=== PATIENT | female | born 1995 | race Caucasian/White ===

== ENCOUNTER 2017-07-10 06:36 | Day surgery (SDC) | payer OTHER ==
[~2017-07-10] VITALS: Ht 170.2 cm; Wt 102.8 kg
[~2017-07-10 06:36] MED LIST: AMIT100T PO; AMIT75TA PO; AZEL6DRO2 NAS; BACL-19 PO; CYCL5TAB PO; DEXA4TAB PO; DIAZ2TAB3 PO; DICL1ADH15 TD; DOXY100T9; GABA300C PO; GABA600T2 PO; HYDR-3307 PO; HYDROCODONE; METH750T87 PO; MORP30TA3 PO; MORPHINE IR SL; MULT-224 PO; NITR100C56; NITR100C56 PO; ONDA4TAB7; ONDA4TAB7 PO; PROM25TA10 PO; RANI150T4 PO; RANI300T3; RASPBERRY KETONES PO; RIZA10TA20 PO; SENN8.6T12 PO; TOPI100T24 PO; TOPI25TA32 PO; TOPI50TA35 PO; TRAM50TA2; TRAZ100T15; phenergan PO
[2017-07-10 07:20] VITALS: BP 123/83
[2017-07-10 09:05] LABS: GLUCOSE, CSF 59 mg/dL (40-80)
== END 2017-07-10 12:05 ==
LOC: OUT 06:36
PROVIDERS: ATTEND Neurological Surgery
DX: Q07.00 Arnold-Chiari syndrome without spina bifida or hydrocephalus (principal)
CPT/HCPCS: 62270; 82945; 84157; 87070; 87205

== ENCOUNTER → 2017-08-20 | Outpatient (CLI) | payer OTHER ==
[~2017-08-20] MED LIST changes: +ACET500C15 PO; +MORP15TA PO; +MORP30TA PO; +NORE0.357 PO; +OXYC10TA6 PO
[2017-08-20 09:23] LABS: HEMATOCRIT 48.1 % (34.6-47.8); HEMOGLOBIN 16.2 g/dL (11.7-16.4); WHITE BLOOD COUNT 8.4 x10^3/uL (3.4-10)
[2017-08-20 09:36] LABS: BLOOD UREA NITROGEN 11 mg/dL (7-18)
[2017-08-20 09:37] LABS: ASPARTATE AMINO TRANSFERASE 37 U/L (15-37)
== END | disposition home or self-care (01) ==
LOC: STAR 08:28
PROVIDERS: ATTEND Neurological Surgery
DX: Z01.818 Encounter for other preprocedural examination (principal); M43.24 Fusion of spine, thoracic region; M43.26 Fusion of spine, lumbar region; G93.2 Benign intracranial hypertension; R79.1 Abnormal coagulation profile
CPT/HCPCS: 36415; 71020; 80053; 85025; 85610; 85730; 93005

== ENCOUNTER 2017-08-26 05:46 | Inpatient (IN) | payer OTHER ==
[~2017-08-26] VITALS: Ht 170.2 cm; Wt 97.8 kg
[2017-08-26] MEDS ORDERED: LACTATED RINGERS 1,000 ML IV SCH (06:06)
[2017-08-26] MEDS ORDERED: BUPIVACAINE/PF 0.5% ONE ×2 (06:15→09:38)
[2017-08-26] MEDS ORDERED: THROMBIN 5,000 UNIT VIAL TP ONE ×2 (06:15→09:38)
[2017-08-26] MEDS ORDERED: BACITRACIN 50,000 UNIT ONE (06:16)
[2017-08-26] MEDS ORDERED: EPINEPHRINE 1 MG/ML, 1ML ONE (06:16)
[2017-08-26] MEDS ORDERED: FLU VACC QS2017-18 (36MOS+) UP/PF 0.5 ML IM-VACC ONE (06:30)
[2017-08-26 06:32] LABS: HCG UR LOT HCG7030192
[2017-08-26 06:38] LABS: HCG UR OBC PASS
[2017-08-26] MEDS ORDERED: PIPERACILLIN/TAZO/PMX 3.375GM 50 ML ONE (07:24)
[2017-08-26] MEDS ORDERED: CEFAZOLIN 1,000 MG ONE (07:37)
[2017-08-26] MEDS ORDERED: ROCURONIUM 10MG/ML,5ML ONE (07:37)
[2017-08-26] MEDS ORDERED: MIDAZOLAM 1 MG/ML, 2ML ONE (07:37)
[2017-08-26] MEDS ORDERED: ONDANSETRON 2MG/ML, 2ML ONE ×2 (07:37→09:43)
[2017-08-26] MEDS ORDERED: KETOROLAC 30 MG/1 ML ONE (07:37)
[2017-08-26] MEDS ORDERED: PROPOFOL 10 MG/ML, 20ML ONE (07:37)
[2017-08-26] MEDS ORDERED: NEOSTIGMINE 1 MG/ML, 10ML ONE (07:37)
[2017-08-26] MEDS ORDERED: DEXAMETHASONE 4 MG/ML, 5ML ONE (07:37)
[2017-08-26] MEDS ORDERED: GLYCOPYRROLATE 0.2MG/1ML, 5ML ONE (07:37)
[2017-08-26] MEDS ORDERED: FENTANYL PF 250 MCG/5ML ONE (07:37)
[2017-08-26] MEDS ORDERED: ACETAMINOPHEN 325 MG TABLET PO PRN (09:30)
[2017-08-26] MEDS ORDERED: PROMETHAZINE 25 MG/ML, 1ML IM PRN (09:30)
[2017-08-26] MEDS ORDERED: PHARMACY MAY ADJ FOR RENAL FX MC PRN (09:30)
[2017-08-26] MEDS ORDERED: OXYcodone 5 MG/5 ML ORAL.SOL UDC PO PRN (09:30)
[2017-08-26] MEDS ORDERED: DIPHENHYDRAMINE 50 MG CAPSULE PO PRN (09:30)
[2017-08-26] MEDS ORDERED: MAGNESIUM HYDROXIDE 8%, 30ML UDC PO PRN (09:30)
[2017-08-26] MEDS ORDERED: MEPERIDINE/PF 25MG/0.5ML IVPush PRN (09:30)
[2017-08-26] MEDS ORDERED: METOPROLOL 1 MG/ML, 5ML IV PRN (09:30)
[2017-08-26] MEDS ORDERED: ONDANSETRON 2MG/ML, 2ML IVPush PRN ×2 (09:30)
[2017-08-26] MEDS ORDERED: HYDROmorphone 1 MG/ML, 1ML IV PRN (09:30)
[2017-08-26] MEDS ORDERED: SENNA/DOCUSATE TABLET PO PRN (09:30)
[2017-08-26] MEDS ORDERED: ACETAMINOPHEN 650 MG/20.3 ML UDC ONE (09:41)
[2017-08-26] MEDS ORDERED: ACETAMINOPHEN 325 MG TABLET ONE (09:42)
[2017-08-26] MEDS ORDERED: OXYcodone 5 MG/5 ML ORAL.SOL UDC ONE (09:42)
[2017-08-26] MEDS ORDERED: FENTANYL PF 100 MCG/2ML ONE (09:42)
[2017-08-26] MEDS: FENTANYL PF 100 MCG/2ML IV PRN ×2 (10:00→10:15)
[2017-08-26 13:24] VITALS: BP 112/73
[2017-08-26] MEDS: NS + 20MEQ KCL 1,000 ML IV SCH (13:58)
[2017-08-26] MEDS: CEFAZOLIN PMX 1GM/50ML 50 ML IVPB SCH ×2 (15:26→23:03)
[2017-08-26] MEDS: GABAPENTIN 400 MG CAPSULE PO SCH ×2 (16:48→22:06)
[2017-08-26] MEDS: OXYcodone IR 5MG TABLET PO PRN ×2 (16:49→22:07)
[2017-08-26 20:02] VITALS: BP 116/73
[2017-08-26] MEDS ORDERED: AMITRIPTYLINE 100 MG TABLET PO SCH (21:00)
[2017-08-26] MEDS: SODIUM CHLORIDE FLUSH 10ML SYR IVF SCH (21:00)
[2017-08-26 23:56] VITALS: BP 113/59
[2017-08-27] MEDS: NS + 20MEQ KCL 1,000 ML IV SCH (03:00)
[2017-08-27 04:12] VITALS: BP 114/69
[2017-08-27 07:45] VITALS: BP 119/77
[2017-08-27] MEDS: GABAPENTIN 400 MG CAPSULE PO SCH (08:24)
[2017-08-27] MEDS: SODIUM CHLORIDE FLUSH 10ML SYR IVF SCH (08:24)
[2017-08-27] MEDS ORDERED: NORETHINDRONE 0.35 MG PO SCH (09:00)
== END 2017-08-27 10:52 | disposition home or self-care (01) | DRG 33 ==
LOC: ORIP 05:46 → 4NOR 11:10 → DCLOUNGE 08-27 10:30
PROVIDERS: ADMIT Neurological Surgery; ATTEND Neurological Surgery
PROC: 00164J6 Bypass Cerebral Ventricle to Peritoneal Cavity with Synthetic Substitute, Percutaneous Endoscopic Approach (ICD-10-PCS; principal; 2017-08-26 07:30)
DX: G93.2 Benign intracranial hypertension (principal); Z98.2 Presence of cerebrospinal fluid drainage device
CPT/HCPCS: 36415; 70450; 81025; 86850; 86900; J0171; J0690; J1100; J1885; J2250; J2405; J2543; J2704; J2710; J3010; J3480; J3490; C1727; C1894; J7120

== ENCOUNTER → 2017-09-18 | Outpatient (CLI) | payer OTHER | END | disposition home or self-care (01) | LOC: RAD 15:07 | PROVIDERS: ATTEND Nurse Practitioner Critical Care Medicine | DX: G93.2 Benign intracranial hypertension (principal); Z98.890 Other specified postprocedural states | CPT/HCPCS: 70450 ==

== ENCOUNTER → 2017-11-20 | Outpatient (CLI) | payer OTHER ==
[2017-11-20 12:10] LABS: ALBUMIN 3.8 g/dL (3.4-5.0); ANION GAP 8 mmol/L (5-15); C-REACTIVE PROTEIN, QUANT 0.22 mg/dL (0.02-0.49); CALCIUM 9.1 mg/dL (8.5-10.1); CHLORIDE 107 mmol/L (98-107)
[2017-11-20 12:13] LABS: ALANINE AMINOTRANSFERASE 35 U/L (12-78); ALKALINE PHOSPHATASE 100 U/L (45-117); BILIRUBIN,TOTAL 0.3 mg/dL (0.2-1.0); CREATININE 0.82 mg/dL (0.55-1.02); TOTAL PROTEIN 8.3 g/dL (6.4-8.2)
[2017-11-20 12:19] LABS: HEMOGLOBIN A1C 5.2 % (4.2-6.3)
== END | disposition home or self-care (01) ==
LOC: LAB 11:44
PROVIDERS: ATTEND Family Medicine
DX: R74.0 Nonspecific elevation of levels of transaminase and lactic acid dehydrogenase [LDH] (principal); G43.919 Migraine, unspecified, intractable, without status migrainosus; R26.89 Other abnormalities of gait and mobility
CPT/HCPCS: 36415; 80053; 82306; 83036; 86140

== ENCOUNTER → 2018-04-22 | Outpatient (CLI) | payer OTHER ==
[~2018-04-22] MED LIST changes: +CEFAZOLIN 1,000 MG ONE; +EPHEDRINE 50 MG/ML, 1ML ONE; +ONDANSETRON 2MG/ML, 2ML ONE; +OXYTOCIN 10 UNITS/ML, 1ML ONE; +PHENYLEPHRINE 10 MG/ML ONE; +WATER-INJECTION,STERILE 10 ML IV ONE; +morphine SULFATE/PF 0.5 MG/ML, 10ML ONE
== END | disposition home or self-care (01) ==
LOC: PETCFH 08:22
PROVIDERS: ATTEND Family Medicine
DX: R68.81 Early satiety (principal); R11.0 Nausea
CPT/HCPCS: 78264; A9541; J0690; J2274; J2405; J2370; J2590

== ENCOUNTER → 2018-04-24 | Outpatient (CLI) | payer OTHER ==
[~2018-04-24] MED LIST changes: -CEFAZOLIN 1,000 MG ONE; -EPHEDRINE 50 MG/ML, 1ML ONE; -ONDANSETRON 2MG/ML, 2ML ONE; -OXYTOCIN 10 UNITS/ML, 1ML ONE; -PHENYLEPHRINE 10 MG/ML ONE; -WATER-INJECTION,STERILE 10 ML IV ONE; -morphine SULFATE/PF 0.5 MG/ML, 10ML ONE
[2018-04-24 12:44] LABS: BASOPHILS # (AUTO) 0.02 x10^3/uL (0-0.1); BASOPHILS % (AUTO) 0 % (0-1); EOSINOPHILS # (AUTO) 0.15 x10^3/uL (0-0.4); EOSINOPHILS % (AUTO) 3 % (1-7); LYMPHOCYTES # (AUTO) 2.13 x10^3/uL (1-3.4); LYMPHOCYTES % (AUTO) 36 % (22-44); MD NO; MEAN CORPUSCULAR HEMOGLOBIN 30.1 pg (27.0-34.8); MEAN CORPUSCULAR HGB CONC 33.2 g/dL (32.4-35.8); MEAN CORPUSCULAR VOLUME 90.6 fL (80-100); MEAN PLATELET VOLUME 10.7 fL (7.4-10.4); MONOCYTES # (AUTO) 0.11 x10^3/uL (0.2-0.8); MONOCYTES % (AUTO) 2 % (2-9); NEUTROPHILS # (AUTO) 3.44 x10^3/uL (1.8-6.8); NEUTROPHILS % (AUTO) 59 % (42-75); PLATELET COUNT 226 x10^3/uL (130-400); RED BLOOD COUNT 4.94 x10^6/uL (3.82-5.3); RED CELL DISTRIBUTION WIDTH 13.9 % (9.6-15.2)
[2018-04-24 14:39] LABS: CHLORIDE 106 mmol/L (98-107)
[2018-04-24 14:50] LABS: ALANINE AMINOTRANSFERASE 28 U/L (12-78); ALBUMIN 4.1 g/dL (3.4-5.0); ALKALINE PHOSPHATASE 86 U/L (45-117); ANION GAP 4 mmol/L (5-15); BILIRUBIN,TOTAL 0.6 mg/dL (0.2-1.0); CALCIUM 9.5 mg/dL (8.5-10.1); CREATININE 0.98 mg/dL (0.55-1.02); TOTAL PROTEIN 8.2 g/dL (6.4-8.2)
== END | disposition home or self-care (01) ==
LOC: CFH 10:19
PROVIDERS: ATTEND Family Medicine
DX: I95.9 Hypotension, unspecified (principal); R42 Dizziness and giddiness
CPT/HCPCS: 36415; 80053; 82306; 82533; 85025

== ENCOUNTER 2018-04-30 20:15 | Emergency (ER) | payer OTHER ==
[~2018-04-30] VITALS: Ht 170.2 cm; Wt 73.4 kg
[2018-04-30] MEDS ORDERED: SODIUM CHLORIDE 0.9% 1,000ML IVBOLUS ONE (20:30)
[2018-04-30] MEDS ORDERED: SODIUM CHLORIDE FLUSH 10ML SYR IVF ONE (20:30)
[2018-04-30 20:51] LABS: BASOPHILS # (AUTO) 0.08 x10^3/uL (0-0.1); BASOPHILS % (AUTO) 1 % (0-1); EOSINOPHILS # (AUTO) 0.21 x10^3/uL (0-0.4); EOSINOPHILS % (AUTO) 3 % (1-7); LYMPHOCYTES # (AUTO) 3.19 x10^3/uL (1-3.4); LYMPHOCYTES % (AUTO) 42 % (22-44); MD NO; MEAN CORPUSCULAR HEMOGLOBIN 30.4 pg (27.0-34.8); MEAN CORPUSCULAR HGB CONC 33.7 g/dL (32.4-35.8); MEAN CORPUSCULAR VOLUME 90.1 fL (80-100); MEAN PLATELET VOLUME 10.1 fL (7.4-10.4); MONOCYTES # (AUTO) 0.33 x10^3/uL (0.2-0.8); MONOCYTES % (AUTO) 4 % (2-9); NEUTROPHILS # (AUTO) 3.78 x10^3/uL (1.8-6.8); NEUTROPHILS % (AUTO) 50 % (42-75); PLATELET COUNT 235 x10^3/uL (130-400); RED BLOOD COUNT 4.95 x10^6/uL (3.82-5.3); RED CELL DISTRIBUTION WIDTH 13.9 % (9.6-15.2)
[2018-04-30 20:56] LABS: ALANINE AMINOTRANSFERASE 25 U/L (12-78); ALBUMIN 4.2 g/dL (3.4-5.0); ANION GAP 5 mmol/L (5-15); CALCIUM 9.2 mg/dL (8.5-10.1); CHLORIDE 102 mmol/L (98-107); CREATININE 0.86 mg/dL (0.55-1.02)
[2018-04-30 21:01] LABS: ALKALINE PHOSPHATASE 85 U/L (45-117); BILIRUBIN,TOTAL 0.4 mg/dL (0.2-1.0); TOTAL PROTEIN 8.3 g/dL (6.4-8.2)
[2018-04-30 22:29] LABS: CULTURE INDICATED? YES; MICROSCOPIC INDICATED
[2018-04-30 23:17] VITALS: BP 101/66
== END 2018-04-30 23:45 | disposition home or self-care (01) ==
LOC: ED 23:22
DX: R51 Headache (principal); F50.89 Other specified eating disorder; K21.9 Gastro-esophageal reflux disease without esophagitis
CPT/HCPCS: 36415; 70250; 70450; 71045; 72040; 74018; 80053; 81001; 84703; 85025; 87086; 93005; 99285; J7030

== ENCOUNTER → 2018-05-12 | Outpatient (CLI) | payer OTHER ==
[2018-05-12 16:17] LABS: BASOPHILS # (AUTO) 0.01 x10^3/uL (0-0.1); BASOPHILS % (AUTO) 0 % (0-1); EOSINOPHILS # (AUTO) 0.16 x10^3/uL (0-0.4); EOSINOPHILS % (AUTO) 3 % (1-7); LYMPHOCYTES # (AUTO) 2.07 x10^3/uL (1-3.4); LYMPHOCYTES % (AUTO) 32 % (22-44); MD NO; MEAN CORPUSCULAR HEMOGLOBIN 30.6 pg (27.0-34.8); MEAN CORPUSCULAR HGB CONC 33.6 g/dL (32.4-35.8); MEAN PLATELET VOLUME 10.4 fL (7.4-10.4); MONOCYTES # (AUTO) 0.19 x10^3/uL (0.2-0.8); MONOCYTES % (AUTO) 3 % (2-9); NEUTROPHILS # (AUTO) 4.01 x10^3/uL (1.8-6.8); NEUTROPHILS % (AUTO) 62 % (42-75); PLATELET COUNT 195 x10^3/uL (130-400); RED BLOOD COUNT 4.87 x10^6/uL (3.82-5.3); RED CELL DISTRIBUTION WIDTH 13.9 % (9.6-15.2)
[2018-05-12 16:27] LABS: ALBUMIN 3.9 g/dL (3.4-5.0); ANION GAP 7 mmol/L (5-15); CALCIUM 9.9 mg/dL (8.5-10.1); CHLORIDE 108 mmol/L (98-107)
[2018-05-12 16:56] LABS: ALANINE AMINOTRANSFERASE 54 U/L (12-78); ALKALINE PHOSPHATASE 81 U/L (45-117); BILIRUBIN,TOTAL 0.3 mg/dL (0.2-1.0); CREATININE 0.77 mg/dL (0.55-1.02); THYROID STIMULATING HORMONE 0.866 mIU/L (0.358-3.740); TOTAL PROTEIN 7.8 g/dL (6.4-8.2)
== END | disposition home or self-care (01) ==
LOC: LAB 15:59
PROVIDERS: ATTEND Family Medicine
DX: R63.4 Abnormal weight loss (principal); R68.81 Early satiety
CPT/HCPCS: 36415; 80053; 82607; 84443; 85025

== ENCOUNTER → 2018-05-27 | Outpatient (CLI) | payer OTHER | END | disposition home or self-care (01) | LOC: CFH 07:47 | PROVIDERS: ATTEND Internal Medicine Gastroenterology | DX: R11.2 Nausea with vomiting, unspecified (principal); R63.4 Abnormal weight loss; K21.9 Gastro-esophageal reflux disease without esophagitis | CPT/HCPCS: 74245 ==

== ENCOUNTER → 2018-07-22 | Outpatient (CLI) | payer OTHER ==
[~2018-07-22] MED LIST changes: +OMNIPAQUE 350 MG/ML, 100ML BOTTLE ONE; +TRAZ-137; -TRAZ100T15
== END | disposition home or self-care (01) ==
LOC: CFH 09:51
PROVIDERS: ATTEND Family Medicine
DX: K76.0 Fatty (change of) liver, not elsewhere classified (principal); N20.0 Calculus of kidney
CPT/HCPCS: 74177; Q9967

== ENCOUNTER → 2018-08-04 | Outpatient (CLI) | payer OTHER ==
[~2018-08-04] MED LIST changes: +FLUD0.1T PO; +GADOBUTROL 7.5 MMOL/7.5 ML PFS ONE; +OMEP-110 PO; -OMNIPAQUE 350 MG/ML, 100ML BOTTLE ONE
== END | disposition home or self-care (01) ==
LOC: RAD 14:40
PROVIDERS: ATTEND Nurse Practitioner Psychiatric/Mental Health
DX: G44.89 Other headache syndrome (principal); G44.1 Vascular headache, not elsewhere classified; G97.1 Other reaction to spinal and lumbar puncture; R61 Generalized hyperhidrosis; Z98.890 Other specified postprocedural states
CPT/HCPCS: 70553; A9585

== ENCOUNTER → 2018-08-06 | Outpatient (CLI) | payer OTHER ==
[~2018-08-06] MED LIST changes: -GADOBUTROL 7.5 MMOL/7.5 ML PFS ONE
== END | disposition home or self-care (01) ==
LOC: STAR 10:37
PROVIDERS: ATTEND Internal Medicine Gastroenterology
DX: Z02.9 Encounter for administrative examinations, unspecified (principal)

== ENCOUNTER 2018-08-11 06:22 | Day surgery (SDC) | payer OTHER ==
[~2018-08-11] VITALS: Ht 170.2 cm; Wt 63.0 kg
[2018-08-11 07:00] VITALS: BP 111/78
[2018-08-11] MEDS ORDERED: SODIUM CHLORIDE 0.9% 1,000 ML IV SCH (07:02)
== END 2018-08-11 13:03 | disposition home or self-care (01) ==
LOC: OUT 06:22
PROVIDERS: ATTEND Nurse Practitioner Psychiatric/Mental Health
DX: R51 Headache (principal); Z88.6 Allergy status to analgesic agent
CPT/HCPCS: 62284; 72126; 72129; 72132; J7030; Q9967

== ENCOUNTER 2018-08-13 11:16 | Day surgery (SDC) | payer OTHER ==
[2018-08-06 11:14] VITALS: BP 102/69
[~2018-08-13] VITALS: Ht 170.2 cm; Wt 61.1 kg
[2018-08-13 12:06] VITALS: BP 102/69
[2018-08-13] MEDS ORDERED: LACTATED RINGERS 1,000 ML IV SCH (13:00)
[2018-08-13] MEDS ORDERED: PROPOFOL 10 MG/ML, 50ML ONE (13:02)
[2018-08-13] MEDS ORDERED: FENTANYL PF 100 MCG/2ML IV PRN (13:30)
[2018-08-13] MEDS ORDERED: MIDAZOLAM 1 MG/ML, 2ML IV PRN (13:30)
[2018-08-13] MEDS ORDERED: ONDANSETRON ODT 8 MG PO PRN (13:30)
== END 2018-08-13 15:00 | disposition home or self-care (01) ==
LOC: OR 11:16
PROVIDERS: ATTEND Internal Medicine Gastroenterology
DX: K31.89 Other diseases of stomach and duodenum (principal)
CPT/HCPCS: 43239; 81025; 88305; J2704; J7120; Q0162

== ENCOUNTER → 2018-08-13 | Outpatient (CLI) | payer OTHER ==
[2018-08-13 11:50] LABS: ALANINE AMINOTRANSFERASE 33 U/L (12-78); ANION GAP 6 mmol/L (5-15); CALCIUM 9.5 mg/dL (8.5-10.1); CHLORIDE 107 mmol/L (98-107); CREATININE 0.76 mg/dL (0.55-1.02)
[2018-08-13 11:54] LABS: ALKALINE PHOSPHATASE 77 U/L (45-117); BILIRUBIN,TOTAL 0.5 mg/dL (0.2-1.0); PREALBUMIN 18.2 mg/dL (20.0-40.0); TOTAL PROTEIN 8.2 g/dL (6.4-8.2)
== END | disposition home or self-care (01) ==
LOC: LAB 11:22
PROVIDERS: ATTEND Family Medicine
DX: R63.4 Abnormal weight loss (principal); R68.81 Early satiety
CPT/HCPCS: 36415; 80053; 84134

== ENCOUNTER → 2018-09-08 | Outpatient (CLI) | payer OTHER ==
[2018-09-08 10:23] LABS: HCG UR SG 1.017 (1.003-1.030)
== END | disposition home or self-care (01) ==
LOC: LAB 09:46
PROVIDERS: ATTEND Internal Medicine Gastroenterology
DX: R11.2 Nausea with vomiting, unspecified (principal)
CPT/HCPCS: 36415; 81025; 82150; 82533; 83690; 83970; 84110; 86704; 86708; 86803; 87340

== ENCOUNTER → 2018-12-03 | Outpatient (CLI) | payer OTHER ==
[~2018-12-03] MED LIST changes: -GABA600T2 PO; +GABA600T7 PO; -MULT-224 PO; +MULT-642 PO
== END | disposition home or self-care (01) ==
LOC: CFH 09:22
PROVIDERS: ATTEND Student in an Organized Health Care Education/Training Program
DX: N20.9 Urinary calculus, unspecified (principal); R10.9 Unspecified abdominal pain
CPT/HCPCS: 76770

== ENCOUNTER → 2019-01-13 | Outpatient (CLI) | payer MEDICAID, OTHER ==
[2019-01-13 17:01] LABS: ALBUMIN 4.2 g/dL (3.4-5.0); ANION GAP 4 mmol/L (5-15); CALCIUM 9.2 mg/dL (8.5-10.1); CHLORIDE 107 mmol/L (98-107)
[2019-01-13 17:07] LABS: ALANINE AMINOTRANSFERASE 20 U/L (12-78); ALKALINE PHOSPHATASE 68 U/L (45-117); BILIRUBIN,TOTAL 0.3 mg/dL (0.2-1.0); CREATININE 0.74 mg/dL (0.55-1.02); PREALBUMIN 25.7 mg/dL (20.0-40.0); TOTAL PROTEIN 7.8 g/dL (6.4-8.2)
== END | disposition home or self-care (01) ==
LOC: LAB 11:35
PROVIDERS: ATTEND Family Medicine
DX: R63.4 Abnormal weight loss (principal)
CPT/HCPCS: 36415; 80053; 84134

== ENCOUNTER 2019-02-05 14:47 | Outpatient (CLI) | payer OTHER, MEDICAID | END 2019-02-05 23:59 | disposition home or self-care (01) | LOC: CFH 14:47 | PROVIDERS: ATTEND Internal Medicine Cardiovascular Disease | DX: R07.89 Other chest pain (principal); R06.02 Shortness of breath; Z82.49 Family history of ischemic heart disease and other diseases of the circulatory system | CPT/HCPCS: 93306 ==

== ENCOUNTER → 2019-04-24 | Outpatient (CLI) | payer MEDICAID | END | disposition home or self-care (01) | LOC: CFH 12:43 | PROVIDERS: ATTEND Internal Medicine Gastroenterology | DX: K31.84 Gastroparesis (principal); R11.2 Nausea with vomiting, unspecified | CPT/HCPCS: 74018 ==

== ENCOUNTER → 2021-06-08 | Outpatient (CLI) | payer MEDICAID ==
[~2021-06-08] MED LIST changes: -DICL1ADH15 TD; +DICL1PAT13 TD; +DOXY-162; -DOXY100T9; +GADOTERATE 10 MMOL/20 ML VIAL ONE; +GLUCAGON 1 MG ONE; +HYDR-3248 PO; -HYDR-3307 PO; +MORP-30 PO; -MORP30TA3 PO; -TRAZ-137; +TRAZ-175
== END | disposition home or self-care (01) ==
LOC: CFH 11:45
PROVIDERS: ATTEND Internal Medicine
DX: N83.292 Other ovarian cyst, left side (principal); R11.2 Nausea with vomiting, unspecified; R13.10 Dysphagia, unspecified; K21.00 Gastro-esophageal reflux disease with esophagitis, without bleeding; K59.04 Chronic idiopathic constipation; R19.7 Diarrhea, unspecified; Z90.49 Acquired absence of other specified parts of digestive tract
CPT/HCPCS: 72197; 74183; A9575; J1610